=== PATIENT | female | born 1990 | race Caucasian/White ===

== ENCOUNTER 2017-04-08 14:38 | Emergency (ER) | payer MEDICAID ==
[~2017-04-08] VITALS: Ht 165.1 cm; Wt 72.0 kg
[2017-04-08] MEDS ORDERED: METHOCARBAMOL 500MG TABLET PO ONE (19:45)
[2017-04-08] MEDS ORDERED: KETOROLAC 30MG/ML VIAL IM ONE (19:45)
[2017-04-08 20:02] LABS: CLARITY URINE CLEAR (CLEAR); COLOR URINE YELLOW (YELLOW); KETONES URINE NEGATIVE (NEGATIVE); LEUKOCYTE ESTERASE URINE NEGATIVE (NEGATIVE); NITRITE URINE NEGATIVE (NEGATIVE); OCCULT BLOOD URINE NEGATIVE (NEGATIVE); PROTEIN URINE NEGATIVE (NEGATIVE); SPECIFIC GRAVITY URINE 1.013 (1.005-1.030); UROBILINOGEN URINE 0.2 E.U./dL (0.2-1.0)
[2017-04-08 20:08] VITALS: BP 127/77
== END 2017-04-08 20:50 | disposition home or self-care (01) ==
LOC: ER 15:57
DX: S39.012A Strain of muscle, fascia and tendon of lower back, initial encounter (principal); R11.2 Nausea with vomiting, unspecified; R19.7 Diarrhea, unspecified; R50.9 Fever, unspecified; R31.9 Hematuria, unspecified; K21.9 Gastro-esophageal reflux disease without esophagitis; Z90.49 Acquired absence of other specified parts of digestive tract; X50.0XXA Overexertion from strenuous movement or load, initial encounter; Y93.89 Activity, other specified; Y92.69 Other specified industrial and construction area as the place of occurrence of the external cause; Y99.8 Other external cause status
CPT/HCPCS: 81003; 81025; 96372; 99283; J1885; Z7610